=== PATIENT | male | born 1990 | race Caucasian/White ===

== ENCOUNTER 2025-02-21 02:49 | Emergency (ER) | payer SELFPAY ==
[~2025-02-21] VITALS: Ht 185.4 cm; Wt 91.0 kg
[2025-02-21 03:17] VITALS: O2SAT 98
[2025-02-21] MEDS: ACETAMINOPHEN 325MG TABLET PO ONE (05:02)
[2025-02-21] MEDS: TETANUS, DIPHTHERIA, PERTUSSIS VAC/PF 0.5ML (>10YR OLD) IM ONE ×2 (05:04→05:26)
[2025-02-21] MEDS ORDERED: BACITRACIN ZINC OINT UDPKT TOP ONE (05:47)
[2025-02-21] MEDS: LIDOCAINE HCL/EPINEPHRINE 1%-EPI 1:100,000 20ML VIAL INFIL ONE (05:49)
[2025-02-21] MEDS: BACITRACIN ZINC OINT UDPKT TOP ONE (05:55)
[2025-02-21 06:07] VITALS: BP 140/80; PULSE 96; RESP 15; TEMP 36.8; O2SAT 100
== END 2025-02-21 06:09 | disposition home or self-care (01) ==
LOC: ER 02:49
DX: S01.112A Laceration without foreign body of left eyelid and periocular area, initial encounter (principal); X58.XXXA Exposure to other specified factors, initial encounter; Y93.83 Activity, rough housing and horseplay; Y92.89 Other specified places as the place of occurrence of the external cause; Y99.8 Other external cause status
CPT/HCPCS: 90715; 12013; 90471; 99283; J2004; Z7610